=== PATIENT | female | born 1960 | race Two or more races ===

== ENCOUNTER 2019-11-29 15:07 | Emergency (ER) | payer MEDICAID ==
[~2019-11-29] VITALS: Ht 162.6 cm; Wt 104.5 kg
[2019-11-29 15:17] VITALS: BP 143/95
== END 2019-11-29 15:43 | disposition left against medical advice (07) ==
LOC: ER 15:07
DX: R07.89 Other chest pain (principal); I10 Essential (primary) hypertension; Z87.39 Personal history of other diseases of the musculoskeletal system and connective tissue
CPT/HCPCS: 99281

== ENCOUNTER 2019-12-21 17:36 | Emergency (ER) | payer MEDICAID ==
[~2019-12-21] VITALS: Ht 165.1 cm; Wt 99.0 kg
[2019-12-21 17:51] VITALS: BP 138/77
[2019-12-21 19:02] LABS: BASOPHILS % 1.1 % (0.0-2.0); EOSINOPHILS % 3.2 % (0.0-5.0); HEMATOCRIT. 38.8 % (36.0-48.0); LYMPHOCYTES % 29.9 % (20.0-50.0); MEAN CORPUSCULAR HEMOGLOBIN 28.2 pg (28.0-32.0); MEAN CORPUSCULAR VOLUME 83.8 fL (81.0-99.0); MEAN PLATELET VOLUME 6.9 fl (7.4-10.4); MONOCYTES % 5.5 % (2.0-8.0); NEUTROPHILS % 60.3 % (40.0-76.0); PLATELET 311 x1000/uL (130-400); RED BLOOD CELL COUNT 4.62 mill/uL (4.2-5.4); RED CELL DISTRIBUTION WIDTH 15.8 % (11.6-14.6)
[2019-12-21 19:05] LABS: CHLORIDE 106 mEq/L (98-107)
[2019-12-21 19:16] LABS: B-HCG QUANTITATIVE < 1.0 mIU/mL (<3)
[2019-12-21] MEDS ORDERED: IBUPROFEN 600MG TABLET PO NR (20:00)
[2019-12-21 21:38] LABS: CLARITY URINE CLEAR (CLEAR); COLOR URINE YELLOW (YELLOW); KETONES URINE TRACE (NEGATIVE); LEUKOCYTE ESTERASE URINE NEGATIVE (NEGATIVE); NITRITE URINE NEGATIVE (NEGATIVE); OCCULT BLOOD URINE NEGATIVE (NEGATIVE); PH URINE 5.5 (4.5-8.0); PROTEIN URINE NEGATIVE (NEGATIVE); SPECIFIC GRAVITY URINE 1.023 (1.005-1.030)
== END 2019-12-21 23:02 | disposition home or self-care (01) ==
LOC: ER 17:36
DX: R10.2 Pelvic and perineal pain (principal); N64.4 Mastodynia; I10 Essential (primary) hypertension; G43.909 Migraine, unspecified, not intractable, without status migrainosus; M19.90 Unspecified osteoarthritis, unspecified site
CPT/HCPCS: 36415; 76830; 76856; 80053; 81003; 84702; 85025; 99284

== ENCOUNTER 2020-02-09 15:35 | Observation (INO) | payer MEDICARE, MEDICAID | END 2020-02-09 16:10 | disposition home or self-care (01) | LOC: 8 EST LDRP 15:35 | PROVIDERS: ADMIT Obstetrics & Gynecology; ATTEND Obstetrics & Gynecology | DX: O62.9 Abnormality of forces of labor, unspecified (principal); Z3A.28 28 weeks gestation of pregnancy | CPT/HCPCS: G0378 ==

== ENCOUNTER 2020-03-08 10:28 | Emergency (ER) | payer MEDICAID ==
[~2020-03-08] VITALS: Ht 167.6 cm; Wt 82.0 kg
[2020-03-08 10:32] VITALS: BP 153/76
== END 2020-03-08 12:09 | disposition left against medical advice (07) ==
LOC: ER 10:28
DX: Z53.21 Procedure and treatment not carried out due to patient leaving prior to being seen by health care provider (principal); R07.89 Other chest pain; I10 Essential (primary) hypertension; M19.90 Unspecified osteoarthritis, unspecified site; Z53.29 Procedure and treatment not carried out because of patient's decision for other reasons; Z98.890 Other specified postprocedural states

== ENCOUNTER 2020-03-09 21:28 | Emergency (ER) | payer MEDICARE, MEDICAID ==
[~2020-03-09] VITALS: Ht 157.5 cm; Wt 104.0 kg
[2020-03-09] MEDS ORDERED: ACETAMINOPHEN 325MG TABLET PO STA (22:45)
[2020-03-09] MEDS ORDERED: ASPIRIN 81MG TABLET PO ONE (22:45)
[2020-03-09 23:50] VITALS: BP 149/94
[2020-03-10 00:04] LABS: BASOPHILS % 0.8 % (0.0-2.0); EOSINOPHILS % 0.1 % (0.0-5.0); HEMATOCRIT. 36.6 % (36.0-48.0); HEMOGLOBIN. 12.1 g/dL (12.0-16.0); LYMPHOCYTES % 13.2 % (20.0-50.0); MEAN CORPUSCULAR HEMOGLOBIN 27.9 pg (28.0-32.0); MEAN CORPUSCULAR VOLUME 84.2 fL (81.0-99.0); MEAN PLATELET VOLUME 6.8 fl (7.4-10.4); MONOCYTES % 2.8 % (2.0-8.0); NEUTROPHILS % 83.1 % (40.0-76.0); PLATELET 303 x1000/uL (130-400); RED BLOOD CELL COUNT 4.35 mill/uL (4.2-5.4); RED CELL DISTRIBUTION WIDTH 16.1 % (11.6-14.6)
[2020-03-10 00:12] LABS: CHLORIDE 107 mEq/L (98-107)
== END 2020-03-10 00:36 | disposition left against medical advice (07) ==
LOC: ER 21:28
DX: M79.10 Myalgia, unspecified site (principal); I10 Essential (primary) hypertension; M19.90 Unspecified osteoarthritis, unspecified site; G43.909 Migraine, unspecified, not intractable, without status migrainosus; F17.210 Nicotine dependence, cigarettes, uncomplicated; Z98.890 Other specified postprocedural states
CPT/HCPCS: 36415; 71045; 80053; 83880; 84484; 85025; 93005; 99285; Z7610